=== PATIENT | female | born 1970 | race Caucasian/White ===

== ENCOUNTER 2019-03-21 15:14 | Emergency (ER) | payer MEDICAID ==
[~2019-03-21] VITALS: Ht 104.1 cm; Wt 60.0 kg
[2019-03-21] MEDS ORDERED: IBUPROFEN 600MG TABLET PO ONE (16:45)
[2019-03-21 18:05] VITALS: BP 147/77
== END 2019-03-21 18:21 | disposition home or self-care (01) ==
LOC: ER 15:14
DX: S00.83XA Contusion of other part of head, initial encounter (principal); S09.90XA Unspecified injury of head, initial encounter; I10 Essential (primary) hypertension; E11.9 Type 2 diabetes mellitus without complications; Y01.XXXA Assault by pushing from high place, initial encounter; Y93.89 Activity, other specified; Y92.89 Other specified places as the place of occurrence of the external cause; Y99.8 Other external cause status
CPT/HCPCS: 70486; 72100; 72170; 73030; 82962; 99284